=== PATIENT | female | born 1935 | race Caucasian/White ===

== ENCOUNTER 2016-08-09 16:21 | Emergency (ER) | payer MEDICARE, OTHER ==
[2016-08-09] MEDS ORDERED: MAXZIDE 37.5 M1 EAC1 PO (17:31)
[2016-08-09] MEDS ORDERED: PRAVASTATIN SOD40 M1 PO (17:31)
[2016-08-09] MEDS ORDERED: PAXIL10 M1 PO (17:32)
[2016-08-09] MEDS ORDERED: FLONASE ALLERG9.9 ML (17:32)
== END 2016-08-09 18:31 ==
LOC: EDMED 16:21
PROC: 2Y41X5Z Packing of Nasal Region using Packing Material (ICD-10-PCS; principal; 2016-08-09)
DX: R04.0 Epistaxis (principal); Z79.82 Long term (current) use of aspirin